=== PATIENT | female | born 1985 | race Caucasian/White ===

== ENCOUNTER 2018-04-10 01:12 | Emergency (ER) | payer MEDICAID ==
[2018-04-10] MEDS: METHYLPREDNISOLONE 125 MG INJ IM (03:31)
[2018-04-10] MEDS: FAMOTIDINE 20 MG TAB PO (03:31)
[2018-04-10] MEDS: DIPHENHYDRAMINE 25 MG CAP PO (03:31)
== END 2018-04-10 04:48 | disposition home or self-care (01) ==
LOC: FTE 01:12
DX: R22.0 Localized swelling, mass and lump, head (principal); J45.909 Unspecified asthma, uncomplicated
CPT/HCPCS: 96372; 99284-25